=== PATIENT | male | born 1930 | race Caucasian/White ===

== ENCOUNTER 2018-02-25 11:26 | Inpatient (IN) | payer OTHER, SELFPAY ==
[2018-02-25 13:14] LABS: Absolute Lymphocytes (CBC) 4.3 K/uL (0.7-4.9); Absolute Monocytes 1.5 K/uL (0.1-1.3); Basophils % 0.5 % (0-1.3); Eosinophils % 0.4 % (0-4.4); Hematocrit 46.6 % (39.6-49.0); Lymphocytes % 22.7 % (15.3-44.8); MCH 28.7 pg (27.0-35.0); MCV 88.2 fL (80-100); MPV 10.3 fL (7.6-11.3); Monocytes % 7.7 % (3.3-12.3); RBC Red Blood Cell Count 5.29 M/uL (4.33-5.43)
[2018-02-25 13:21] LABS: Protime INR 1.12
[2018-02-25 13:40] LABS: Albumin 4.2 g/dL (3.4-5.0); Bilirubin Direct 0.1 mg/dL (0-0.2); Bilirubin Total 0.5 mg/dL (0.2-1.0); Magnesium 2.9 mg/dL (1.8-2.4); Potassium 3.7 mmol/L (3.5-5.1); Protein, Total 8.6 g/dL (6.4-8.2)
[2018-02-25] MEDS ORDERED: NA CHLORIDE 0.9% 500 ML ONE (13:46)
[2018-02-25] MEDS ORDERED: ONDANSETRON 4 MG/2 ML VIAL ONE ×2 (13:46→15:53)
[2018-02-25] MEDS ORDERED: FAMOTIDINE 20 MG/2 ML VIAL IV ONE (13:46)
--- NOTE | 2018-02-25 13:58 | RAD REPORT ---
EXAM DESCRIPTION: CT - Abdomen Pelvis Wo Contrast - 02/25/2018 1:32 pm CLINICAL HISTORY: Constipation, abdominal pain, vomiting COMPARISON: None. TECHNIQUE: Axial [address] imaging of the abdomen and pelvis was performed without IV contrast. No IV contrast was given because of allergy, abnormal renal function, patient refusal or physician re quest. Oral contrast was given. All CT scans are performed using dose optimization technique as appropriate and may include automated exposure control or mA/KV adjustment according to patient size. FINDINGS: No suspicious findings in the lung bases. No pericardial thickening or effusion. The liver, spleen and pancreas show no suspicious findings on non-contrast imaging. Several rounded f luid attenuation masses are scattered throughout the liver all believed to be incidental cysts. No hydronephrosis or suspicious renal mass. No significant adrenal finding. Isodense renal masses an d pyelonephritis cannot be excluded in the absence of IV contrast. Urinary bladder is contracted. No bladder calculi. Stomach is dilated without evidence for gastric wall thickening or mass. Gastric outlet is not suspec cricket. Large amount of fluid is present in the stomach. This is hyperdense from a combination of retain ed fluid, patient self medication and diluted oral contrast. Similar attenuation value fluid extends into the small bowel. Proximal small bowel loops are dilated to 3.4 cm. There is an abrupt transition seen in the distal jejunum. This is localized to the anterior mid abdomen near the umbilicus. At the point of transition there is fecalized small bowel content. Assessment of the mass is difficult as t he patient was moving during image acquisition. Distal to the transition point the small bowel is dec ompressed. Colon is mostly decompressed. No acute finding in the distal small bowel or colon. No free air, free fluid or inflammatory stranding. No mass or bulky lymphadenopathy. Fat filled ingu inal hernias are present. A 12 millimeter fat only umbilical hernia present. Prominent disc and bony degenerative changes are present. A pathologic bone process is not confirmed. Arterial tree calcifications are present. IMPRESSION: Small bowel obstruction versus prominent stomach and proximal small bowel gas or enterit is. An abrupt transition in bowel diameter is present distal jejunum in the anterior abdomen to right of the umbilicus. There is fecalized small bowel content immediately proximal to the transition point. Due to motion, transition point is not optimally visualized. A small mass or stricture could be prese nt; however, no gross mass lesion at this site. Dilated fluid-filled stomach secondary to the small bowel process. No gastric mass or gastric outlet obstruction suspected. Full assessment is limited is the absence of IV contrast.
--- NOTE | 2018-02-25 14:03 | RAD REPORT ---
EXAM DESCRIPTION: RAD - Chest Pa And Lat (2 Views) - 02/25/2018 1:22 pm CLINICAL HISTORY: Shortness of breath, abdominal pain, vomiting COMPARISON: April 2017 TECHNIQUE: PA and lateral views of the chest were obtained. FINDINGS: The lungs are clear of failure, infiltrate or mass. Cardiomegaly is present similar to c omparison. No vascular engorgement. No pleural effusion or pneumothorax seen. No acute bony finding noted. No aortic abnormality. IMPRESSION: Stable cardiomegaly with no failure or volume overload findings. No acute lung parenchymal process.
[2018-02-25] MEDS ORDERED: LIDOCAINE VISCOUS 2% SOLN 15 ML UDC ONE (14:23)
--- NOTE | 2018-02-25 14:39 | EKG ---
Test Date: 2018-02-25 Test Time: 13:02:09 Pack Worker Supervisor: LILI MEASUREMENT RESULTS: Intervals: Rate: 71 AZ: 236 QRSD: 172 QT: 522 QTc: 567 [place]: P: -66 AZ: 236 QRS: 254 T: 54 INTERPRETIVE STATEMENTS: Sinus rhythm, first degree AV block Right bundle branch block Left [place] Possible Lateral infarct, age undetermined Abnormal ECG Compared to ECG 10/13/2016 07:11:59 Ventricular premature complex(es) no longer present Myocardial infarct finding still present Electronically Signed On 02-25-18 14:39:38 CDT by Adam Grimes
--- NOTE | 2018-02-25 15:10 | EDPHYS ---
Physician Documentation [facility] Name: Curt Adair Age: 87 yrs Sex: Male : 1930 Arrival Date: 02/25/2018 Time: 11:38 Bed 26 Private MD: ED Physician Jeremy Quintero HPI: 02/25 14:03 This 87 yrs old Male presents to ER via EMS with complaints of Vomiting, wa Constipation. 14:03 The patient presents to the emergency department with nausea, vomiting, denies abd wa pain. denies diarrhea. Onset: The symptoms/episode began/occurred this morning. Possible causes: bad food exposure. The symptoms are aggravated by nothing. The symptoms are alleviated by nothing. Associated signs and symptoms: Pertinent positives: nausea, vomiting, Pertinent negatives: abdominal pain, anorexia, diarrhea, dysuria, fever. Severity of symptoms: At their worst the symptoms were moderate in the emergency department the symptoms are unchanged. The patient has not experienced similar symptoms in the past. The patient has not recently seen a physician. Historical: - Allergies: 11:44 PENICILLINS; aj1 - Home Meds: 11:44 paroxetine HCl 10 mg Oral tab 1 tab once daily [Active]; Klor-Con 10 10 mEq Oral TbER 1 aj1 tab once daily [Active]; magnesium oxide 400 mg Oral tab daily [Active]; Lasix 20 mg Oral tab 1 tab once daily [Active]; glimepiride 1 mg Oral tab 1 tab once daily [Active]; pravastatin 80 mg Oral tab 1 tab once daily [Active]; - PMHx: 11:44 CAD; CHF; Diabetes NIDDM; [place]; syncope; aj1 - Immunization history:: Flu vaccine is up to date. - Social history:: Smoking status: Patient/guardian denies using tobacco. - Ebola Screening: : Patient denies travel to an Ebola-affected area in the 21 days before illness onset. - Family history:: not pertinent. - Hospitalizations: : No recent hospitalization is reported. ROS: 14:07 Constitutional: Negative for fever, chills, and weight loss, Eyes: Negative for injury, wa pain, redness, and discharge, ENT: Negative for injury, pain, and discharge, Neck: Negative for injury, pain, and swelling, Cardiovascular: Negative for chest pain, palpitations, and edema, Back: Negative for injury and pain, : Negative for injury, bleeding, discharge, and swelling, MS/Extremity: Negative for injury and deformity, Skin: Negative for injury, rash, and discoloration, Neuro: Negative for headache, weakness, numbness, tingling, and seizure. 14:07 Respiratory: Positive for shortness of breath, at rest. chronic, Negative for cough, sputum production, wheezing. 14:07 Abdomen/GI: Positive for nausea and vomiting, Negative for diarrhea. Exam: 14:08 Constitutional: This is a well developed, well nourished patient who is awake, alert, wa and in no acute distress. Head/Face: Normocephalic, atraumatic. Eyes: Pupils equal round and reactive to light, extra-ocular motions intact. Lids and lashes normal. Conjunctiva and sclera are non-icteric and not injected. Cornea within normal limits. Periorbital areas with no swelling, redness, or edema. ENT: Nares patent. No nasal discharge, no septal abnormalities noted. Tympanic membranes are normal and external auditory canals are clear. Oropharynx with no redness, swelling, or masses, exudates, or evidence of obstruction, uvula midline. Mucous membranes moist. Neck: Trachea midline, no thyromegaly or masses palpated, and no cervical lymphadenopathy. Supple, full range of motion without nuchal rigidity, or vertebral point tenderness. No Meningismus. Chest/axilla: Normal chest wall appearance and motion. Nontender with no deformity. No lesions are appreciated. Cardiovascular: Regular rate and rhythm with a normal S1 and S2. No gallops, murmurs, or rubs. Normal PMI, no JVD. No pulse deficits. Respiratory: Lungs have equal breath sounds bilaterally, clear to auscultation and percussion. No rales, rhonchi or wheezes noted. No increased work of breathing, no retractions or nasal flaring. Back: No spinal tenderness. No costovertebral tenderness. Full range of motion. Skin: Warm, dry with normal turgor. Normal color with no rashes, no lesions, and no evidence of cellulitis. MS/ Extremity: Pulses equal, no cyanosis. Neurovascular intact. Full, normal range of motion. Neuro: Awake and alert, GCS 15, oriented to person, place, time, and situation. Cranial nerves II-XII grossly intact. Motor strength 5/5 in all extremities. Sensory grossly intact. Cerebellar exam normal. Normal gait. 14:08 Abdomen/GI: Inspection: obese Bowel sounds: normal, in all quadrants, Palpation: mild abdominal tenderness, in all quadrants. 14:09 Psych: Awake, alert, with orientation to person, place and time. Behavior, mood, and mo affect are within normal limits. Vital Signs: 11:44 BP 137 / 79; Pulse 76; Resp 18; Pulse Ox 98% on R/A; Weight 102.06 kg; Height 5 ft. 6 aj1 in. (167.64 cm); Pain 0/10; 12:33 BP 122 / 68; Pulse 64; Resp 17; Pulse Ox 99% on R/A; mt 13:07 BP 121 / 71; Pulse 66; Resp 17; Pulse Ox 96% on R/A; mt 13:59 BP 140 / 73; Pulse 70; Resp 18; Pulse Ox 100% on R/A; mt 14:03 BP 130 / 62; Pulse 68; Resp 18; Pulse Ox 99% on R/A; Pain 0/10; ed1 14:44 BP 143 / 67; Pulse 79; Resp 18; Pulse Ox 98% on R/A; mt 15:41 BP 123 / 67; Pulse 69; Resp 16; Pulse Ox 97% on R/A; mt 16:21 BP 146 / 64; Pulse 72; Resp 18; Temp 98.4(O); Pulse Ox 100% on R/A; Pain 0/10; ed1 11:44 Body Mass Index 36.32 (102.06 kg, 167.64 cm) aj Procedures: 15:01 Performed nasogastric tube placement: anesthesized nasogastric passage with viscus manjinder [place]. Placed in NGT in R nostril on first attempt. placement confirmed with auscultation. pt tolerate procedure well. connected to intermittent wall suction. MDM: 11:52 Patient medically screened. mo 14:09 Differential diagnosis: Nonspecific abd pain, gastritis, pancreatitis, appendicitis, mo viral gastroenteritis, r/o obstruction. treat, labs, CT and reassess. 15:05 Data reviewed: vital signs, nurses notes, lab test result(s). Test interpretation: by mo ED physician or midlevel provider: labs noted for leukocytosis. renal insuff. hyperglycemia. CXR noted for cardiomegaly. CT abd/pelvis: acute SBO with noted transition point in the jejenum.. Response to treatment: the patient's symptoms have markedly improved after treatment. Physician consultation: Mario Armenta MD. Admission orders: after a detailed discussion of the patient's condition and case, the admit orders are written by me. 02/25 12:52 Order name: BMP; Complete Time: 14:12 mo 02/25 12:52 Order name: CBC with Diff; Complete Time: 14:12 02/25 12:52 Order name: Hepatic Function; Complete Time: 14:13 02/25 12:52 Order name: Lipase; Complete Time: 14:13 02/25 12:52 Order name: Magnesium; Complete Time: 14:13 02/25 12:52 Order name: PT-INR; Complete Time: 14:13 02/25 12:52 Order name: XRAY Chest Pa And Lat (2 Views); Complete Time: 14:13 02/25 12:52 Order name: Troponin (emerg Dept Use Only); Complete Time: 14:13 02/25 12:53 Order name: CT Abd/Pelvis - Without Cont; Complete Time: 14:11 02/25 14:42 Order name: Chest Single View XRAY; Complete Time: 15:55 ed1 02/25 12:52 Order name: EKG; Complete Time: 12:53 02/25 12:52 Order name: Cardiac monitoring; Complete Time: 13:02/25 12:52 Order name: EKG - Nurse/Tech; Complete Time: 13:06 02/25 12:52 Order name: IV Saline Lock; Complete Time: 13:49 02/25 12:52 Order name: Labs collected and sent; Complete Time: 13:02/25 12:52 Order name: O2 Per Protocol; Complete Time: 13:02/25 12:52 Order name: O2 Sat Monitoring; Complete Time: 13:02/25 14:15 Order name: NG Tube: place nasogastric tube. place on intermittent suction; Complete mo Time: 14:45 Administered Medications: 13:56 Drug: Zofran 4 mg Route: IVP; Site: left wrist; ss 15:11 Follow up: Response: No adverse reaction; Nausea is decreased ed1 13:56 Drug: Pepcid 20 mg Route: IVP; Site: left wrist; 15:11 Follow up: Response: No adverse reaction ed1 13:57 Drug: NS 0.9% 500 ml Route: IV; Rate: bolus; Site: left wrist; ss 15:11 Follow up: IV Status: Completed infusion; IV Intake: 500ml ed1 15:55 Drug: Zofran 4 mg Route: IVP; Site: left wrist; ed1 16:50 Drug: Promethazine 12.5 mg Route: IVP; Site: left wrist; ed1 Disposition: 02/25/18 15:10 Hospitalization ordered by Mario Armenta for Inpatient Admission. Preliminary diagnosis are acute small bowel onstruction, acute vomiting. - Bed requested for Telemetry/MedSurg (Inpatient). - Status is Inpatient Admission. ed1 - Condition is Stable. - Problem is new. - Symptoms have improved. UTI on Admission? No Signatures: Dispatcher [employer] EDMS Nona Khalil RN RN aj1 Aidan, Manny em1 Rebekah Sullivan RN RN Alicia Adorno LVN CLINICAL PROJECT MANAGER ed1 Jeremy Quintero MD MD mo Corrections: (The following items were deleted from the chart) 16:28 15:10 Hospitalization Ordered by Mario Armenta MD for Inpatient Admission. Preliminary em1 diagnosis is acute small bowel onstruction; acute vomiting. Bed requested for Telemetry/MedSurg (Inpatient). Status is Inpatient Admission. Condition is Stable. Problem is new. Symptoms have improved. UTI on Admission? No. mo 17:22 16:28 02/25/2018 15:10 Hospitalization Ordered by Mario Armenta MD for Inpatient ed1 Admission. Preliminary diagnosis is acute small bowel onstruction; acute vomiting. Bed requested for Telemetry/MedSurg (Inpatient). Status is Inpatient Admission. Condition is Stable. Problem is new. Symptoms have improved. UTI on Admission? No. em1
--- NOTE | 2018-02-25 15:10 | ER ---
Nurse's Notes [facility] Name: Curt Adair Age: 87 yrs Sex: Male : 1930 Arrival Date: 02/25/2018 Time: 11:38 Bed 26 Private MD: Diagnosis: acute small bowel onstruction;acute vomiting Presentation: 02/25 11:39 Presenting complaint: Patient states: He has been feeling constipated since yesterday. aj1 He took Milk of Magnesia last night with no relief. This morning at approximately 0800 he started vomiting. States his last BM was yesterday but he cannot remember if it was a normal bowel movement or not. Denies abdominal pain, fever. Transition of care: patient was not received from another setting of care. Onset of symptoms was February 25, 2018 at 08:00. Risk Assessment: Do you want to hurt yourself or someone else? Patient reports no desire to harm self or others. Initial Sepsis Screen: Does the patient meet any 2 criteria? No. Patient's initial sepsis screen is negative. Does the patient have a suspected source of infection? No. Patient's initial sepsis screen is negative. Care prior to arrival: None. 11:39 Method Of Arrival: EMS: [facility] aj1 11:39 Acuity: KELLEY 3 aj1 Triage Assessment: 11:44 General: Appears in no apparent distress. uncomfortable, Behavior is calm, cooperative, aj1 appropriate for age. Pain: Denies pain. GI: Reports constipation, vomiting. Historical: - Allergies: 11:44 PENICILLINS; aj1 - Home Meds: 11:44 paroxetine HCl 10 mg Oral tab 1 tab once daily [Active]; Klor-Con 10 10 mEq Oral TbER 1 aj1 tab once daily [Active]; magnesium oxide 400 mg Oral tab daily [Active]; Lasix 20 mg Oral tab 1 tab once daily [Active]; glimepiride 1 mg Oral tab 1 tab once daily [Active]; pravastatin 80 mg Oral tab 1 tab once daily [Active]; - PMHx: 11:44 CAD; CHF; Diabetes NIDDM; [place]; syncope; aj1 - Immunization history:: Flu vaccine is up to date. - Social history:: Smoking status: Patient/guardian denies using tobacco. - Ebola Screening: : Patient denies travel to an Ebola-affected area in the 21 days before illness onset. - Family history:: not pertinent. - Hospitalizations: : No recent hospitalization is reported. Screenin:45 Abuse screen: Denies threats or abuse. Denies injuries from another. Nutritional aj1 screening: No deficits noted. Tuberculosis screening: No symptoms or risk factors identified. 13:00 Fall Risk No fall in past 12 months (0 pts). No secondary diagnosis (0 pts). IV access ed1 (20 points). Ambulatory Aid- None/Bed Rest/Nurse Assist (0 pts). Gait- Weak (10 pts.). Mental Status- Oriented to own ability (0 pts). Total Huizar Fall Scale indicates Low Risk Score (25-44 pts). Fall prevention measures have been instituted. Side Rails Up X 2 Frequent Obs/Assesments occuring Family Present and informed to notify staff if they need to leave bedside As available Patient and Family Educated on Fall Prevention Program and strategies. Assessment: 11:45 General: Appears in no apparent distress. uncomfortable, Behavior is calm, cooperative, aj1 appropriate for age. Pain: Denies pain. Neuro: Level of Consciousness is awake, alert, obeys commands, Oriented to person, place, time, situation, Speech is normal, Facial symmetry appears normal. Cardiovascular: Patient's skin is warm and dry. Respiratory: Airway is patent Respiratory effort is even, unlabored, Respiratory pattern is regular, symmetrical. GI: Abdomen is distended, Bowel sounds present X 4 quads. Abd is soft X 4 quads Abdomen is tender to palpation in umbilical area Reports constipation, vomiting, Patient currently denies abdominal pain. : No signs and/or symptoms were reported regarding the genitourinary system. EENT: No signs and/or symptoms were reported regarding the EENT system. Derm: No signs and/or symptoms reported regarding the dermatologic system. Skin is pink, warm \T\ dry. normal. Musculoskeletal: No signs and/or symptoms reported regarding the musculoskeletal system. Circulation, motion, and sensation intact. 12:38 Reassessment: Patient appears in no apparent distress at this time. No changes from aj1 previously documented assessment. Patient and/or family updated on plan of care and expected duration. Pain level reassessed. Patient is alert, oriented x 3, equal unlabored respirations, skin warm/dry/pink. 12:39 Reassessment: Dr Quintero at bedside to evaluate patient. aj1 14:03 Reassessment: Patient appears in no apparent distress at this time. Patient and/or ed1 family updated on plan of care and expected duration. Pain level reassessed. Patient is alert, oriented x 3, equal unlabored respirations, skin warm/dry/pink. Patient denies pain at this time. GI: Reports nausea. 14:42 Reassessment: Pts belongings (shirt and shoes) sent home with daughter Venita. Pt ed1 requested to keep his eye drops, glasses and cell phone with him. 16:21 Reassessment: Patient appears in no apparent distress at this time. Patient and/or ed1 family updated on plan of care and expected duration. Pain level reassessed. Patient is alert, oriented x 3, equal unlabored respirations, skin warm/dry/pink. Patient denies pain at this time. GI: Reports nausea. Vital Signs: 11:44 BP 137 / 79; Pulse 76; Resp 18; Pulse Ox 98% on R/A; Weight 102.06 kg; Height 5 ft. 6 aj1 in. (167.64 cm); Pain 0/10; 12:33 BP 122 / 68; Pulse 64; Resp 17; Pulse Ox 99% on R/A; mt 13:07 BP 121 / 71; Pulse 66; Resp 17; Pulse Ox 96% on R/A; mt 13:59 BP 140 / 73; Pulse 70; Resp 18; Pulse Ox 100% on R/A; mt 14:03 BP 130 / 62; Pulse 68; Resp 18; Pulse Ox 99% on R/A; Pain 0/10; ed1 14:44 BP 143 / 67; Pulse 79; Resp 18; Pulse Ox 98% on R/A; mt 15:41 BP 123 / 67; Pulse 69; Resp 16; Pulse Ox 97% on R/A; mt 16:21 BP 146 / 64; Pulse 72; Resp 18; Temp 98.4(O); Pulse Ox 100% on R/A; Pain 0/10; ed1 11:44 Body Mass Index 36.32 (102.06 kg, 167.64 cm) aj1 ED Course: 11:38 Patient arrived in ED. aj1 11:42 Initial lab(s) drawn, by me, sent to lab. Missed attempt(s): 22 gauge in right upper mt arm. 11:43 Triage completed. aj1 11:44 Arm band placed on. aj1 11:45 No provider procedures requiring assistance completed. aj1 11:45 Patient has correct armband on for positive identification. Bed in low position. Call aj1 light in reach. Side rails up X 1. 11:52 Jeremy Quintero MD is Attending Physician. wa 12:38 Nona Khalil, RN is Primary Nurse. aj1 12:56 Primary Nurse role handed off by Nona Khalil, RN ed1 12:56 Alicia Adorno LVN is Primary Nurse. ed1 13:06 EKG done, by park maintenance technician. reviewed by Jeremy Quintero MD. at1 13:07 Patient moved to radiology via stretcher. ed1 13:16 X-ray completed. Patient tolerated procedure poorly. ag1 13:[address] via stretcher. ag1 13:21 XRAY Chest Pa And Lat (2 Views) In Process Unspecified. EDMS 13:32 CT completed. Patient tolerated procedure well. Patient moved to CT. Patient moved back mw3 from CT. 13:33 CT Abd/Pelvis - Without Cont In Process Unspecified. EDMS 13:50 Inserted saline lock: 22 gauge in left wrist, using aseptic technique. ss 14:41 NGT: inserted 14 Fr. via right nare. verified placement of air over stomach, verified ed1 return of gastric contents, to intermittent suction. Returned gastric contents. Patient tolerated well. 15:08 Mario Armenta MD is Hospitalizing Provider. wa 15:18 X-ray completed. Portable x-ray completed in exam room. Patient tolerated procedure ml well. 15:19 Chest Single View XRAY In Process Unspecified. EDMS 17:15 Patient admitted, IV remains in place. intact, No redness/swelling at site. ed1 Administered Medications: 13:56 Drug: Zofran 4 mg Route: IVP; Site: left wrist; ss 15:11 Follow up: Response: No adverse reaction; Nausea is decreased ed1 13:56 Drug: Pepcid 20 mg Route: IVP; Site: left wrist; ss 15:11 Follow up: Response: No adverse reaction ed1 13:57 Drug: NS 0.9% 500 ml Route: IV; Rate: bolus; Site: left wrist; ss 15:11 Follow up: IV Status: Completed infusion; IV Intake: 500ml ed1 15:55 Drug: Zofran 4 mg Route: IVP; Site: left wrist; ed1 16:50 Drug: Promethazine 12.5 mg Route: IVP; Site: left wrist; ed1 Intake: 15:11 IV: 500ml; Total: 500ml. ed1 Outcome: 15:10 Decision to Hospitalize by Provider. ms 17:15 Admitted to Tele accompanied by tech, via stretcher, room 402, with chart, Report ed1 called to FARIHA Casillas 17:15 Condition: stable 17:15 Discharge instructions given to patient, family, Instructed on the need for admit, Demonstrated understanding of instructions. 17:22 Patient left the ED. ed1 Signatures: Dispatcher [employer] Nona Carrillo RN RN Viridiana Petersen Shelby, RN RN ss Alicia Adorno, HEAD OF QUALITY HEAD OF QUALITY ed1 Steffanie middleton, assembler cards and announcements EKG Tat1 Wendy Mcclain [place] Jeremy Quintero MD MD wa Willis, Michelle mw3
--- NOTE | 2018-02-25 15:48 | RAD REPORT ---
EXAM DESCRIPTION: RAD - Chest Single View - 02/25/2018 3:19 pm CLINICAL HISTORY: Nasogastric or orogastric tube placement COMPARISON: None. TECHNIQUE: AP portable chest image was obtained 1509 hours . FINDINGS: Gastric tube is in place. Tip is directed to the right indicating positioning within the g astric antrum.
[2018-02-25] MEDS ORDERED: NA CHLORIDE 0.9% 50 ML IV ONE (16:37)
[2018-02-25] MEDS ORDERED: PROMETHAZINE 25 MG/ML VIAL ONE (16:37)
[2018-02-25 17:52] VITALS: BMI 36.3
[2018-02-25 18:54] LABS: Urine Appearance CLEAR; Urine Bilirubin NEGATIVE (NEG); Urine Blood NEGATIVE (NEG); Urine Color YELLOW; Urine Glucose TRACE (NEG); Urine Protein 1+ (NEG); Urine Urobilinogen 0.2 mg/dL (0.2-1.0); Urine pH 8.5 (5.0-7.0)
[2018-02-25 19:04] LABS: Urine Microscopic Reflex ORDER UMIC
[2018-02-25 19:05] LABS: Urine Bacteria <20 /HPF (NONE SEEN); Urine Culture Reflex Order NOT NEEDED; Urine RBC <5 /HPF (NONE SEEN)
[2018-02-25] MEDS ORDERED: MORPHINE 4 MG/ML SYR IV PRN (20:09)
[2018-02-25] MEDS ORDERED: ACETAMINOPHEN 500 MG TAB PO PRN (20:09)
[2018-02-25] MEDS ORDERED: SODIUM CHLORIDE 0.9% 10ML INJ IV PRN (20:12)
[2018-02-25] MEDS ORDERED: NA CHLORIDE 0.9% 1,000 ML IV SCH (21:00)
[2018-02-25] MEDS: METOPROLOL TARTRATE 5 MG/5 ML INJ IV SCH (22:00)
[2018-02-25] MEDS: NA CHLORIDE 0.9% 1,000 ML IV SCH (22:18)
[2018-02-25] MEDS: CIPROFLOXACIN 400mg IV 400 MG/200 ML BAG IV SCH (22:19)
[2018-02-25] MEDS: ONDANSETRON 4 MG/2 ML VIAL IV PRN (22:19)
[2018-02-25] MEDS: METRONIDAZOLE 500mg IVPB 500 MG/100 ML BAG IV SCH (22:19)
[2018-02-26] MEDS: METOPROLOL TARTRATE 5 MG/5 ML INJ IV SCH ×4 (04:00→21:09)
[2018-02-26] MEDS: ONDANSETRON 4 MG/2 ML VIAL IV PRN ×2 (04:12→10:35)
[2018-02-26 05:42] LABS: Absolute Lymphocytes (CBC) 1.9 K/uL (0.7-4.9); Absolute Monocytes 1.2 K/uL (0.1-1.3); Absolute Neutrophil 8.8 K/uL (1.8-8.0); Basophils % 0.2 % (0-1.3); Eosinophils % 0.5 % (0-4.4); Hematocrit 43.5 % (39.6-49.0); MCH 28.7 pg (27.0-35.0); MCV 87.6 fL (80-100); MPV 10.4 fL (7.6-11.3); Monocytes % 9.6 % (3.3-12.3); RBC Red Blood Cell Count 4.97 M/uL (4.33-5.43)
[2018-02-26 05:51] LABS: Albumin 3.6 g/dL (3.4-5.0); Bilirubin Direct 0.1 mg/dL (0-0.2); Bilirubin Total 0.5 mg/dL (0.2-1.0); Potassium 3.1 mmol/L (3.5-5.1); Protein, Total 7.7 g/dL (6.4-8.2)
[2018-02-26] MEDS: METRONIDAZOLE 500mg IVPB 500 MG/100 ML BAG IV SCH ×2 (08:21→16:37)
[2018-02-26] MEDS: PANTOPRAZOLE 40 MG INJ IVP SCH (08:21)
[2018-02-26] MEDS: CIPROFLOXACIN 400mg IV 400 MG/200 ML BAG IV SCH ×2 (08:21→21:08)
--- NOTE | 2018-02-26 08:51 | RAD REPORT ---
EXAM DESCRIPTION: RAD - Abdomen W Erect - 02/26/2018 7:50 am CLINICAL HISTORY: sbo Pain COMPARISON: Abdomen Pelvis Wo Contrast dated 02/25/2018 FINDINGS: Stomach bubble appears mildly distended with NG tube in place. There is a paucity of bowel gas noted. This may be related to fluid-filled small bowel loops. Lack of air within the small bowel mixed assessment of SBO limited. No pneumoperitoneum suspected. IMPRESSION: Fluid-filled small bowel loops are likely present. The lack of small bowel air makes ass essment of a SBO limited. If further assessment of the bowel gas is needed, follow-up CT would be rec ommended.
[2018-02-26] MEDS: NA CHLORIDE 0.9% 1,000 ML IV SCH (11:20)
--- NOTE | 2018-02-26 12:16 | P.HP ---
Certification for Inpatient Patient admitted to: Inpatient With expected LOS: >2 Midnights Practitioner: I am a practitioner with admitting privileges, knowledge of patient current condition, hospital course, and medical plan of care. Services: Services provided to patient in accordance with Admission requirements found in Title 42 Section 412.3 of the Code of Federal Regulations Patient History Date of Service: 02/26/18 Reason for admission: NAUSEA , VOMITING FOR TWO DAYS. History of Present Illness: MR. BRAGA IS MORBIDLY OBESE GM WITH DM,HTN AND POOR DIET. COMES WITH TWO DAYS OF NAUSEA, VOMITING AND HAD LAST BM ABOUT TWO DAYS AGO. HE IS GENERALLY WEAK. Allergies Penicillins Allergy (Mild, Verified 02/26/18 04:05) Hives/Rash Home Medications: Pantoprazole [Protonix Tab*] 40 mg PO DAILY PRN 08/21/13 Aspirin [Adult Low Dose Aspirin EC] 81 mg PO DAILY 08/07/15 Cholecalciferol (Vitamin D3) [Vitamin D3] 2,000 unit PO DAILY 08/07/15 Magnesium Oxide [Mag 0X*] 400 mg PO DAILY 02/19/16 Carvedilol 6.25 mg PO BID 08/18/16 Glimepiride 1 mg PO DAILY 08/18/16 Potassium Chloride [Klor-Con M20] 20 meq PO DAILY 08/18/16 Trazodone [Desyrel*] 50 mg PO DAILY 08/18/16 Furosemide [Lasix] 20 mg PO DAILY #30 tab 08/20/16 Meclizine HCl 25 mg PO TID #30 tab 08/21/16 - Past Medical/Surgical History Has patient received pneumonia vaccine in the past: Yes Diabetic: Yes -: OBESE -: CORONARY HEART DISEASE ABOVE -: HYPERTENSION -: ARTHRITIS -: DEPRESSION -: PROSTATE CANCER IN REMISSION -: DM -: CHOLESTEROL -: neck surgery - Family History Mother -: Heart disease, Cancer Notes: skin cancer - Social History Smoking Status: Never smoker Alcohol use: No CD- Drugs: No Caffeine use: No Place of Residence: Home Review of Systems 10-point ROS is otherwise unremarkable Gastrointestinal: Nausea, Vomiting Physical Examination - Vital Signs Temperature: 96.9 F Blood Pressure: 110/54 Pulse: 75 Respirations: 18 Pulse Ox (%): 97 - Physical Exam General: Alert, Oriented x3, Acute distress, Mild distress, Obese HEENT: Atraumatic, PERRLA, Mucous membr. moist/pink, EOMI, Sclerae nonicteric Neck: Supple, 2+ carotid pulse no bruit, No LAD, Without JVD or thyroid abnormality Respiratory: Clear to auscultation bilaterally, Normal air movement Cardiovascular: Regular rate/rhythm, Normal S1 S2 Gastrointestinal: No tenderness, Absent bowel sounds Musculoskeletal: No tenderness Integumentary: No rashes Neurological: Normal gait, Normal speech, Normal strength at 5/5 x4 extr, Normal tone, Normal affect Lymphatics: No axilla or inguinal lymphadenopathy - Studies Laboratory Data (last 24 hrs) 02/25/18 11:35: PT 13.2 H, INR 1.12 02/25/18 11:35: WBC 18.9 H, Hgb 15.2, Hct 46.6, Plt Count 228 02/25/18 11:35: Sodium 134 L, Potassium 3.7, BUN 43 H, Creatinine 2.20 H, Glucose 195 H, Magnesium 2.9 H, Total Bilirubin 0.5, AST 22, ALT 25, Alkaline Phosphatase 78, Lipase 188 Assessment and Plan - Problems (Diagnosis) (1) Small bowel obstruction Current Visit: Yes Status: Acute Plan: NGT WITH LIS GEN SURGEON CONSULT HOPEFULLY HE WILL START HIS BOWELS MOVING. HE NEEDS TO LOSE WEIGHT BUT DOES NOT QUIT EATING UNHEALTHY FOOD. (2) Weakness Onset Date: 08/19/16 Current Visit: No Status: Acute (3) Diabetes Onset Date: 08/08/15 Current Visit: No Status: Chronic - Advance Directives Does patient have a Living Will: No Does patient have a Durable POA for Healthcare: No
--- NOTE | 2018-02-26 12:16 | CON ---
Date of Consultation: 02/26/2018 Reason For Consultation: Small bowel obstruction. History Of Present Illness: The patient is an 87-year-old gentleman, who presented with nausea or vo miting. Denies any abdominal pain and denies any diarrhea or constipation. Last bowel movement was 2-3 days ago and he is not passing any gas today, but he did yesterday. He has never had these sympt oms before. No fever or chills. No sore throat, runny nose, cough, headaches, or dizziness. No rodrick st pain. No dysuria or hematuria. Review of Systems: Otherwise unremarkable. Past Medical History: Significant for coronary artery disease, CHF, diabetes type 2, [place], syncope. Past Surgical History: Back surgeries. Allergies: INCLUDE PENICILLIN. Social History: He does not smoke. He does not drink alcohol. Family History: Noncontributory. Physical Examination: Vital Signs: Stable. He is afebrile. General: He is awake, alert, and oriented x3. Head and Neck: Cranial nerves 2 through 12 are grossly within normal limits. No neck masses. No JV D. Throat clear. Neck is supple. Chest: Clear. Heart: S1, S2. Abdomen: Soft, nondistended, and nontender. Positive bowel sounds. Extremities: Neurovascularly intact. Neuro: Nonfocal. Laboratory Data: Shows a white count on admission of 18.9, today is 12,000. There is no left shift. Absolute neutrophils, however, are elevated. INR is 1.12. Chemistries reviewed. There is some mi ld hypokalemia. CT of the abdomen and pelvis and abdominal x-ray reviewed with the radiologist and e ssentially shows dilated small bowel, fluid-filled colon, and there could be some food that is causin g the problem in the small bowel. There is no free air. There is no pneumatosis at this time. Assessment: Small bowel obstruction, etiology unclear; however, the patient does not have peritoniti s. Recommendations: N.p.o., NG tube, IV fluids, IV antibiotics. We will get a small bowel series and t he patient does not need surgical intervention at this time. Should he not improve with conservative measures, he may. Plan of care discussed with Dr. Armenta. KATHIA/MAYNOR Voice ID: [id number] Report ID: [id number]
[2018-02-26] MEDS: D5 0.45 NS 1,000 ML IV SCH ×2 (13:00→21:00)
--- NOTE | 2018-02-26 19:47 | RAD REPORT ---
EXAM DESCRIPTION: RAD - Small Bowel Series - 02/26/2018 7:26 pm CLINICAL HISTORY: Small bowel obstruction COMPARISON: CT study February 25 FINDINGS: Distributor Of Director[employer] film shows air-filled stomach. NG tube tip is in the duodenal bulb. Prominent small bowel loops are present. No free air or pneumatosis. Gastric assessment is limited. Contrast was instilled through the NG tube and therefore most of the c ontrast was directed into the duodenum. Only a small quantity of contrast was present in the stomach. Duodenum and jejunum loops are dilated. Mild mucosal edema changes are present in the jejunum. No foc al mass identified. Contrast column was diluted by a retained small bowel fluid. Transition point was not identifiable. No discrete mass was identifiable. Contrast reached the colon approximately 3 hour s. On 4 hour and 6 hour films contrast column has extended through most of the colon. At 6 hours cont rast has reached the distal rectum. No extravasation of contrast. Contrast transit through the decomp ressed small-bowel loops was rapid and was not well imaged. IMPRESSION: Dilated duodenum and jejunum. A transition point in the distal small bowel was not ident ifiable. Contrast reached the colon at approximately 3 hours. By the 6 hour film contrast has reached the dist al rectum.
[2018-02-26] MEDS: KCL 20 MEQ/100 mL IVPB 20 MEQ/100 ML BAG IV SCH ×2 (21:09→23:48)
[2018-02-27] MEDS: NA CHLORIDE 0.9% 1,000 ML IV SCH ×2 (00:15→14:20)
[2018-02-27] MEDS: D5 0.45 NS 1,000 ML IV SCH ×2 (00:15→13:00)
[2018-02-27] MEDS: METRONIDAZOLE 500mg IVPB 500 MG/100 ML BAG IV SCH ×3 (00:52→17:30)
[2018-02-27] MEDS: METOPROLOL TARTRATE 5 MG/5 ML INJ IV SCH ×4 (04:09→21:02)
[2018-02-27] MEDS: PANTOPRAZOLE 40 MG INJ IVP SCH (09:38)
[2018-02-27] MEDS: CIPROFLOXACIN 400mg IV 400 MG/200 ML BAG IV SCH ×2 (09:39→20:55)
--- NOTE | 2018-02-27 12:37 | P.PN ---
Subjective Date of Service: 02/27/18 Chief Complaint: NAUSEA , VOMITING FOR TWO DAYS. Subjective: Improving (Patient had large BM yesterday, passing gas, no abdominal pain, hungry) Physical Examination - Vital Signs Temperature: 96.5 F Blood Pressure: 152/65 Pulse: 56 Respirations: 16 Pulse Ox (%): 100 - Physical Exam General: Alert, In no apparent distress, Cooperative HEENT: Normocephalic, Mucous membr. moist/pink, Other (NG tube in place) Respiratory: Clear to auscultation bilaterally Gastrointestinal: Normal bowel sounds, Soft and benign, Non-distended, No ascites, No tenderness, No masses, No rebound, No guarding Neurological: Normal speech Assessment And Plan - Current Problems (Diagnosis) (1) Small bowel obstruction Onset Date: 02/27/18 Current Visit: Yes Status: Acute Plan: --- Cross Coverage for Dr. Boyd ----- Resolving PSBO - DC NG tube now - Start sips of clears - PT consult for assist with ambulation - advance diet soon, likely DC in AM
[2018-02-27] MEDS ORDERED: PHENOL 1.4% ORAL SPRAY 180ML MM PRN (12:42)
[2018-02-27] MEDS ORDERED: POTASSIUM 25 MEQ EFFERV TAB PO ONE ×2 (15:04→22:18)
--- NOTE | 2018-02-27 15:33 | P.PN ---
Subjective Date of Service: 02/27/18 Chief Complaint: NAUSEA , VOMITING FOR TWO DAYS. Subjective: Improving (HAS HAD LARGE BM) Review of Systems 10-point ROS is otherwise unremarkable General: Weakness, Malaise Physical Examination - Vital Signs Temperature: 96.5 F Blood Pressure: 152/65 Pulse: 56 Respirations: 16 Pulse Ox (%): 100 - Physical Exam General: Alert, Obese HEENT: Atraumatic, PERRLA, EOMI Neck: Supple, JVD not distended Respiratory: Clear to auscultation bilaterally, Normal air movement Cardiovascular: Regular rate/rhythm, Normal S1 S2 Gastrointestinal: Normal bowel sounds, No tenderness Musculoskeletal: No tenderness Integumentary: No rashes Neurological: Normal speech, Normal tone, Normal affect Lymphatics: No axilla or inguinal lymphadenopathy - Studies Medications List Reviewed: Yes Assessment And Plan - Current Problems (Diagnosis) (1) Small bowel obstruction Onset Date: 02/27/18 Current Visit: Yes Status: Acute Plan: NGT WITH LIS GEN SURGEON CONSULT HOPEFULLY HE WILL START HIS BOWELS MOVING. HE NEEDS TO LOSE WEIGHT BUT DOES NOT QUIT EATING UNHEALTHY FOOD. HAD LARGE BM BARIUM SHOWS MOVEMENT DC NGT DONE BY DR KYLE. STABLE. (2) Weakness Onset Date: 02/27/18 Current Visit: Yes Status: Acute (3) Diabetes Onset Date: 02/27/18 Current Visit: Yes Status: Chronic
[2018-02-28] MEDS: METRONIDAZOLE 500mg IVPB 500 MG/100 ML BAG IV SCH ×2 (00:09→08:43)
[2018-02-28] MEDS: METOPROLOL TARTRATE 5 MG/5 ML INJ IV SCH ×2 (04:17→10:00)
[2018-02-28] MEDS: NA CHLORIDE 0.9% 1,000 ML IV SCH (04:18)
[2018-02-28 05:23] LABS: Absolute Lymphocytes (CBC) 1.7 K/uL (0.7-4.9); Absolute Monocytes 1.1 K/uL (0.1-1.3); Absolute Neutrophil 5.8 K/uL (1.8-8.0); Basophils % 0.7 % (0-1.3); Eosinophils % 3.2 % (0-4.4); Hematocrit 39.4 % (39.6-49.0); Lymphocytes % 19.5 % (15.3-44.8); MCH 29.4 pg (27.0-35.0); MCV 88.8 fL (80-100); MPV 9.5 fL (7.6-11.3); Monocytes % 12.3 % (3.3-12.3); RBC Red Blood Cell Count 4.43 M/uL (4.33-5.43)
[2018-02-28] MEDS: CIPROFLOXACIN 400mg IV 400 MG/200 ML BAG IV SCH (08:43)
[2018-02-28] MEDS: PANTOPRAZOLE 40 MG INJ IVP SCH (08:44)
--- NOTE | 2018-02-28 09:50 | P.DS ---
Admission Date: 02/25/18 Discharge Date: 02/28/18 Disposition: ROUTINE DISCHARGE Discharge Condition: FAIR Reason for Admission: NAUSEA , VOMITING FOR TWO DAYS. - Problems (1) Small bowel obstruction Onset Date: 02/27/18 Current Visit: Yes Status: Acute (2) Weakness Onset Date: 02/27/18 Current Visit: Yes Status: Acute (3) Diabetes Onset Date: 02/27/18 Current Visit: Yes Status: Chronic Brief History of Present Illness: MR. BRAGA IS MORBIDLY OBESE GM WITH DM,HTN AND POOR DIET. COMES WITH TWO DAYS OF NAUSEA, VOMITING AND HAD LAST BM ABOUT TWO DAYS AGO. HE IS GENERALLY WEAK. MR. BRAGA IS DOING BETTER . HE HAD TWO LIQUID BM. HE WILL GET ANOTHER X RAY AND IF WELL. WILL GO HOME TODAY. HE NEEDS TO HAVE GOOD. B. I TOLD ANABEL TO CALL DR. KYLE AFTER X. RAY. Vital Signs/Physical Exam: Temp Pulse Resp BP Pulse Ox 97.4 F 58 18 147/65 H 97 02/28/18 07:48 02/28/18 07:48 02/28/18 07:48 02/28/18 07:48 02/28/18 07:48 Laboratory Data at Discharge: WBC 8.9 K/uL (4.3-10.9) D 02/28/18 04:37 Hgb 13.0 g/dL (13.6-17.9) L 02/28/18 04:37 Hct 39.4 % (39.6-49.0) L 02/28/18 04:37 Plt Count 149 K/uL (152-406) L D 02/28/18 04:37 PT 13.2 SECONDS (9.5-12.5) H 02/25/18 11:35 INR 1.12 02/25/18 11:35 Sodium 140 mmol/L (136-145) 02/28/18 04:37 Potassium 4.0 mmol/L (3.5-5.1) 02/28/18 04:37 BUN 17 mg/dL (7-18) D 02/28/18 04:37 Creatinine 1.50 mg/dL (0.55-1.3) H 02/28/18 04:37 Glucose 126 mg/dL (74-106) H 02/28/18 04:37 Magnesium 2.9 mg/dL (1.8-2.4) H 02/25/18 11:35 Total Bilirubin 0.5 mg/dL (0.2-1.0) 02/26/18 04:10 AST 21 U/L (15-37) 02/26/18 04:10 ALT 22 U/L (12-78) 02/26/18 04:10 Alkaline Phosphatase 68 U/L (45-117) 02/26/18 04:10 Lipase 133 U/L (73-393) 02/26/18 04:10 Home Medications: Pantoprazole [Protonix Tab*] 40 mg PO DAILY PRN 08/21/13 Aspirin [Adult Low Dose Aspirin EC] 81 mg PO DAILY 08/07/15 Cholecalciferol (Vitamin D3) [Vitamin D3] 2,000 unit PO DAILY 08/07/15 Magnesium Oxide [Mag 0X*] 400 mg PO DAILY 02/19/16 Carvedilol 6.25 mg PO BID 08/18/16 Glimepiride 1 mg PO DAILY 08/18/16 Potassium Chloride [Klor-Con M20] 20 meq PO DAILY 08/18/16 Trazodone [Desyrel*] 50 mg PO DAILY 08/18/16 Furosemide [Lasix] 20 mg PO DAILY #30 tab 08/20/16 Meclizine HCl 25 mg PO TID #30 tab 08/21/16
--- NOTE | 2018-02-28 11:02 | RAD REPORT ---
EXAM DESCRIPTION: RAD - Abdomen Single View - 02/28/2018 10:11 am CLINICAL HISTORY: sbo Pain COMPARISON: Small Bowel Series dated 02/26/2018; Abdomen W Erect dated 02/26/2018; Abdomen Pelvis W o Contrast dated 02/25/2018 FINDINGS: Prominent stomach bubble is noted. A bowel obstruction pattern is not seen. Contrast is pr esent in the colon. No suspicious calcifications. No significant bony findings. IMPRESSION: No small bowel obstruction pattern is seen. Stomach bubble is mildly prominent.
[2018-02-28 12:52] VITALS: O2SAT 97
--- NOTE | 2018-02-28 13:19 | P.PN ---
Subjective Date of Service: 02/28/18 Chief Complaint: NAUSEA , VOMITING FOR TWO DAYS. Subjective: Improving (Patient tolerated clears well, now tolerating regular diet, no issues) Physical Examination - Vital Signs Temperature: 98.0 F Blood Pressure: 152/66 Pulse: 55 Respirations: 18 Pulse Ox (%): 98 - Physical Exam General: Alert, In no apparent distress, Cooperative HEENT: Mucous membr. moist/pink Gastrointestinal: Soft and benign, Non-distended, No ascites, No tenderness, No masses, No rebound, No guarding - Studies Medications List Reviewed: Yes Assessment And Plan - Current Problems (Diagnosis) (1) Small bowel obstruction Onset Date: 02/27/18 Current Visit: Yes Status: Acute Plan: --- Cross Coverage for Dr. Boyd ----- Resolving PSBO - PT consult for assist with ambulation - DC if tolerated diet
[2018-02-28 16:03] VITALS: BP 140/60; TEMP 97.6
== END 2018-02-28 17:19 | disposition home health service (06) | DRG 390 ==
LOC: ER 11:26 → ERHOLD 15:17 → 4TH 17:12 → UNDODISIN 02-28 15:14
PROVIDERS: ADMIT Internal Medicine; ATTEND Internal Medicine
DX: K56.609 Unspecified intestinal obstruction, unspecified as to partial versus complete obstruction (principal); E11.9 Type 2 diabetes mellitus without complications; E66.01 Morbid (severe) obesity due to excess calories; I50.9 Heart failure, unspecified; I11.0 Hypertensive heart disease with heart failure; I25.10 Atherosclerotic heart disease of native coronary artery without angina pectoris; M19.90 Unspecified osteoarthritis, unspecified site; F32.9 Major depressive disorder, single episode, unspecified; R53.1 Weakness; Z79.84 Long term (current) use of oral hypoglycemic drugs; Z79.82 Long term (current) use of aspirin; Z85.46 Personal history of malignant neoplasm of prostate; I25.2 Old myocardial infarction; Z88.0 Allergy status to penicillin; Z68.36 Body mass index [BMI] 36.0-36.9, adult
CPT/HCPCS: 36415; 71045; 71046; 74018; 74019; 74176; 74250; 80048; 80076; 81003; 81015; 82962; 83690; 83735; 84132; 84484; 85025; 85610; 93005; 96361; 96374; 96375; 97163; 99285; C9113; J0744; J2405; J2550; J7030